=== PATIENT | male | born 1955 | race Two or more races ===

== ENCOUNTER → 2024-03-06 | Outpatient (CLI) | payer MEDICARE, MEDICAID, SELFPAY ==
--- NOTE | 2024-03-06 09:30 | XR_ITS ---
Examination: Esophagram standard Fluoroscopy Upright PA chest single view Upright soft tissue lateral neck single view Exam date and time: March 06, 2024 1025 hours INDICATIONS: Patient states difficulty swallowing food throat swelling 1 year TECHNIQUE AND FINDINGS: Upright PA chest demonstrates enlarged cardiac contour, mild to moderate with scarring at both lung bases Soft tissue lateral neck demonstrates moderate degenerative disc disease diffusely from C3 through C7 Normal epiglottis Patient swallowed thin barium with 27 spot fluoroscopic films of the esophagus obtained Primary peristaltic esophageal waves noted No constricting esophageal lesion Moderate intermittent gastroesophageal reflux No stricture the gastroesophageal junction No esophageal ulcerations IMPRESSION: Moderate intermittent gastroesophageal reflux No stricture at the gastroesophageal junction Given the patient's presentation, consider CT soft tissue neck post intravenous contrast follow-up
== END | disposition home or self-care (01) ==
PROVIDERS: PCP Internal Medicine; Referring Provider Internal Medicine; Visit Provider Internal Medicine
DX: K21.9 Gastro-esophageal reflux disease without esophagitis (principal)
CPT/HCPCS: 74220